=== PATIENT | male | born 1945 | race Hispanic/Latino ===

== ENCOUNTER → 2018-07-12 | Outpatient (CLI) | payer MEDICARE ==
[~2018-07-12] MED LIST: CHOL500051 PO; LISI-617 PO; MAGN400T6 PO; PIOG45TA64 PO; PRAV20TA4 PO; TAMS-1 PO
== END | disposition home or self-care (01) ==
LOC: RAH 08:36
PROVIDERS: ATTEND Family Medicine
DX: E04.1 Nontoxic single thyroid nodule (principal)
CPT/HCPCS: 76536